=== PATIENT | male | born 1940 | race Asian ===

== ENCOUNTER → 2018-01-14 | Outpatient (CLI) | payer OTHER ==
[~2018-01-14] MED LIST: ALLO100T22 PO; ALLO300T23 PO; AMIODARONE HYD200 MG PO; AMITRIPTYLINE H50 MG PO; ASPIR-8181 MG PO; BRILINTA90 MG PO; CARV25TA PO; COLCRYS 0.6MG0.6 MG PO; CORLANOR5 MG PO; COZAAR100 MG PO; DILTIAZEM HCL240 M2 PO; DOCU SOFT100 MG PO; DONE5TAB PO; FAMOTIDINE20 MG PO; FERROUS SULF325 M1 PO; FURO20TA67 PO; GLIP10TA55 PO; HUMALOG KW100 UNIT/M SC; HYDRALAZINE25 MG PO; LANTUS100 UNIT/M SC; LIPITOR40 MG PO; MECLIZINE12.5 MG PO; NEURONTIN 100M100 MG PO; OMEPRAZOLE40 MG PO; RANI150T78 PO; RENA-VITE PO; SODIUM BICAR650 MG PO; TAMS0.4C PO; TRAMADOL HYDROC50 MG PO; VITAMIN D50000 UNIT PO; [UNRECOGNIZED DRUG - OTHER] PO
== END | disposition short-term general hospital (02) ==
LOC: AMB 08:10
DX: E16.1 Other hypoglycemia (principal)
CPT/HCPCS: A0425; A0427

== ENCOUNTER 2018-03-31 21:50 | Emergency (ER) | payer OTHER ==
[~2018-03-31] VITALS: Ht 165.1 cm; Wt 85.3 kg
[2018-03-31 22:16] LABS: PLATELET COUNT 318 K/uL (142-355)
[2018-03-31 22:40] LABS: POTASSIUM 5.2 mmol/L (3.6-5.2)
[2018-04-01 00:02] VITALS: BP 172/100
== END 2018-04-01 00:08 | disposition short-term general hospital (02) ==
LOC: ED 21:50
DX: I21.9 Acute myocardial infarction, unspecified (principal); N19 Unspecified kidney failure; E87.5 Hyperkalemia; E11.9 Type 2 diabetes mellitus without complications; J18.9 Pneumonia, unspecified organism; R00.0 Tachycardia, unspecified
CPT/HCPCS: 36415; 80053; 81000; 82550; 82553; 84484; 85027; 93005; 99285

== ENCOUNTER 2018-04-04 00:18 | Outpatient (CLI) | payer OTHER | END 2018-04-04 01:29 | disposition short-term general hospital (02) | LOC: AMB 00:18 | DX: R07.89 Other chest pain (principal) | CPT/HCPCS: A0425; A0427 ==

== ENCOUNTER 2018-04-11 23:43 | Emergency (ER) | payer OTHER ==
[~2018-04-11] VITALS: Ht 165.1 cm; Wt 85.3 kg
[2018-04-11 23:46] VITALS: TEMP 97.5
[2018-04-12 00:10] LABS: PLATELET COUNT 383 K/uL (142-355)
[2018-04-12 00:39] LABS: POTASSIUM 5.9 mmol/L (3.6-5.2); SODIUM 143 mmol/L (136-145)
[2018-04-12 01:20] VITALS: BP 148/89
== END 2018-04-12 01:20 | disposition home or self-care (01) ==
LOC: ED 23:43
DX: K29.60 Other gastritis without bleeding (principal); N18.9 Chronic kidney disease, unspecified
CPT/HCPCS: 36415; 80053; 81000; 82550; 82553; 84484; 85027; 86318; 93005; 99284

== ENCOUNTER 2018-04-17 01:06 | Emergency (ER) | payer OTHER ==
[~2018-04-17] VITALS: Ht 165.1 cm; Wt 85.3 kg
[2018-04-17 01:08] VITALS: BP 164/107; TEMP 97.9
[2018-04-17 01:51] LABS: PLATELET COUNT 334 K/uL (142-355)
[2018-04-17 02:16] LABS: POTASSIUM 5.9 mmol/L (3.6-5.2)
== END 2018-04-17 03:30 | disposition home or self-care (01) ==
LOC: ED 01:06
PROVIDERS: Family Medicine
DX: R07.89 Other chest pain (principal); D63.1 Anemia in chronic kidney disease; N18.5 Chronic kidney disease, stage 5; E87.5 Hyperkalemia; R00.0 Tachycardia, unspecified; R06.02 Shortness of breath
CPT/HCPCS: 36415; 80053; 82550; 82553; 83880; 84443; 84484; 85027; 85379; 93005; 99283

== ENCOUNTER 2018-04-20 07:28 | Outpatient (CLI) | payer OTHER ==
[2018-04-20] MEDS ORDERED: TAMS0.4C PO (07:39)
[2018-04-20] MEDS ORDERED: OMEPRAZOLE40 MG PO (07:40)
[2018-04-20] MEDS ORDERED: NEURONTIN 100M100 MG PO (07:41)
[2018-04-20] MEDS ORDERED: RANI150T78 PO (07:41)
[2018-04-20] MEDS ORDERED: LIPITOR40 MG PO (07:42)
[2018-04-20] MEDS ORDERED: FURO20TA67 PO (07:42)
[2018-04-20] MEDS ORDERED: DONE5TAB PO (07:43)
[2018-04-20] MEDS ORDERED: AMITRIPTYLINE H50 MG PO (07:44)
[2018-04-20] MEDS ORDERED: ALLO300T23 PO (07:44)
[2018-04-20] MEDS ORDERED: COZAAR100 MG PO ×2 (07:45→07:46)
[2018-04-20] MEDS ORDERED: COLCRYS 0.6MG0.6 MG PO (07:45)
[2018-04-20] MEDS ORDERED: [UNRECOGNIZED DRUG - OTHER] PO (07:46)
[2018-04-20] MEDS ORDERED: GLIP10TA55 PO (07:47)
[2018-04-20] MEDS ORDERED: ASPIR-8181 MG PO (07:49)
== END 2018-04-20 07:31 | disposition short-term general hospital (02) ==
LOC: AMB 07:28
DX: R06.02 Shortness of breath (principal); R07.89 Other chest pain
CPT/HCPCS: A0425; A0427

== ENCOUNTER 2018-04-20 07:29 | Emergency (ER) | payer OTHER ==
[~2018-04-20] VITALS: Ht 165.1 cm; Wt 85.3 kg
[2018-04-20 07:39] VITALS: TEMP 97.9
[2018-04-20] MEDS ORDERED: TAMS0.4C PO (07:39)
[2018-04-20] MEDS ORDERED: OMEPRAZOLE40 MG PO (07:40)
[2018-04-20] MEDS ORDERED: RANI150T78 PO (07:41)
[2018-04-20] MEDS ORDERED: NEURONTIN 100M100 MG PO (07:41)
[2018-04-20] MEDS ORDERED: LIPITOR40 MG PO (07:42)
[2018-04-20] MEDS ORDERED: FURO20TA67 PO (07:42)
[2018-04-20] MEDS ORDERED: DONE5TAB PO (07:43)
[2018-04-20] MEDS ORDERED: ALLO300T23 PO (07:44)
[2018-04-20] MEDS ORDERED: AMITRIPTYLINE H50 MG PO (07:44)
[2018-04-20] MEDS ORDERED: COLCRYS 0.6MG0.6 MG PO (07:45)
[2018-04-20] MEDS ORDERED: COZAAR100 MG PO ×2 (07:45→07:46)
[2018-04-20] MEDS ORDERED: [UNRECOGNIZED DRUG - OTHER] PO (07:46)
[2018-04-20] MEDS ORDERED: GLIP10TA55 PO (07:47)
[2018-04-20] MEDS ORDERED: ASPIR-8181 MG PO (07:49)
[2018-04-20 07:59] LABS: PLATELET COUNT 302 K/uL (142-355)
[2018-04-20 09:57] VITALS: BP 95/56
[2018-04-20 12:42] LABS: POTASSIUM 5.9 mmol/L (3.6-5.2)
== END 2018-04-20 10:15 | disposition short-term general hospital (02) ==
LOC: ED 07:29
PROVIDERS: Emergency Medicine; Internal Medicine
DX: I21.3 ST elevation (STEMI) myocardial infarction of unspecified site (principal)
CPT/HCPCS: 80053; 82550; 82553; 83880; 84484; 85027; 85379; 93005; 94664; 96365; 96374; 99285; J3490

== ENCOUNTER 2018-04-20 10:24 | Outpatient (CLI) | payer OTHER ==
[~2018-04-20 10:24] MED LIST changes: -ALLO100T22 PO; -AMIODARONE HYD200 MG PO; -BRILINTA90 MG PO; -CARV25TA PO; -CORLANOR5 MG PO; -DILTIAZEM HCL240 M2 PO; -DOCU SOFT100 MG PO; -FAMOTIDINE20 MG PO; -FERROUS SULF325 M1 PO; -HUMALOG KW100 UNIT/M SC; -HYDRALAZINE25 MG PO; -LANTUS100 UNIT/M SC; -MECLIZINE12.5 MG PO; -RENA-VITE PO; -SODIUM BICAR650 MG PO; -TRAMADOL HYDROC50 MG PO; -VITAMIN D50000 UNIT PO
== END 2018-04-20 11:32 | disposition short-term general hospital (02) ==
LOC: AMB 10:24
DX: I21.3 ST elevation (STEMI) myocardial infarction of unspecified site (principal)
CPT/HCPCS: A0425; A0427

== ENCOUNTER 2018-05-06 20:26 | Emergency (ER) | payer OTHER ==
[~2018-05-06] VITALS: Ht 165.1 cm; Wt 74.8 kg
[2018-05-06 20:34] VITALS: BP 106/61; TEMP 98.2
== END 2018-05-06 21:08 | disposition home or self-care (01) ==
LOC: ED 20:26
DX: K64.8 Other hemorrhoids (principal); K62.5 Hemorrhage of anus and rectum
CPT/HCPCS: 82272; 99284

== ENCOUNTER 2018-05-23 08:25 | Emergency (ER) | payer OTHER ==
[~2018-05-23] VITALS: Ht 165.1 cm; Wt 74.8 kg
[2018-05-23 09:13] LABS: PLATELET COUNT 393 K/uL (142-355)
[2018-05-23 09:29] LABS: POTASSIUM 4.3 mmol/L (3.6-5.2); SODIUM 141 mmol/L (136-145)
[2018-05-23 14:07] VITALS: BP 122/65; TEMP 97.8
== END 2018-05-23 14:12 | disposition short-term general hospital (02) ==
LOC: ED 08:25
PROVIDERS: Internal Medicine
DX: D64.89 Other specified anemias (principal); K92.2 Gastrointestinal hemorrhage, unspecified; D72.828 Other elevated white blood cell count; R53.1 Weakness; J84.10 Pulmonary fibrosis, unspecified
CPT/HCPCS: 36415; 80053; 82550; 84484; 85027; 93005; 99283

== ENCOUNTER 2018-06-22 04:32 | Emergency (ER) | payer OTHER ==
[~2018-06-22] VITALS: Ht 165.1 cm; Wt 74.8 kg
[2018-06-22 04:46] VITALS: BP 161/96; TEMP 97.7
[2018-06-22 06:20] LABS: PLATELET COUNT 271 K/uL (142-355)
[2018-06-22 06:24] LABS: POTASSIUM 4.7 mmol/L (3.6-5.2)
[2018-06-22] MEDS ORDERED: AMIODARONE HYD200 MG PO (07:16)
[2018-06-22] MEDS ORDERED: ALLO100T22 PO (07:16)
[2018-06-22] MEDS ORDERED: BRILINTA90 MG PO (07:16)
[2018-06-22] MEDS ORDERED: CORLANOR5 MG PO (07:17)
[2018-06-22] MEDS ORDERED: CARV25TA PO (07:17)
[2018-06-22] MEDS ORDERED: DILTIAZEM HCL240 M2 PO (07:18)
[2018-06-22] MEDS ORDERED: DOCU SOFT100 MG PO (07:19)
[2018-06-22] MEDS ORDERED: FERROUS SULF325 M1 PO (07:20)
[2018-06-22] MEDS ORDERED: FAMOTIDINE20 MG PO (07:20)
[2018-06-22] MEDS ORDERED: HYDRALAZINE25 MG PO (07:20)
[2018-06-22] MEDS ORDERED: RENA-VITE PO (07:21)
[2018-06-22] MEDS ORDERED: MECLIZINE12.5 MG PO (07:21)
[2018-06-22] MEDS ORDERED: TRAMADOL HYDROC50 MG PO (07:22)
[2018-06-22] MEDS ORDERED: SODIUM BICAR650 MG PO (07:22)
[2018-06-22] MEDS ORDERED: HUMALOG KW100 UNIT/M SC (07:23)
[2018-06-22] MEDS ORDERED: VITAMIN D50000 UNIT PO (07:23)
[2018-06-22] MEDS ORDERED: LANTUS100 UNIT/M SC ×2 (07:24)
== END 2018-06-22 08:18 | disposition short-term general hospital (02) ==
LOC: ED 04:32
PROVIDERS: Internal Medicine
DX: J18.9 Pneumonia, unspecified organism (principal); N18.6 End stage renal disease; Z99.2 Dependence on renal dialysis; D72.828 Other elevated white blood cell count; R06.02 Shortness of breath
CPT/HCPCS: 36415; 80053; 85027; 93005; 96365; 96366; 99284; J0456; J0696

== ENCOUNTER 2018-06-22 08:24 | Outpatient (CLI) | payer OTHER ==
[~2018-06-22 08:24] MED LIST changes: +ALLO100T22 PO; +AMIODARONE HYD200 MG PO; +BRILINTA90 MG PO; +CARV25TA PO; +CORLANOR5 MG PO; +DILTIAZEM HCL240 M2 PO; +DOCU SOFT100 MG PO; +FAMOTIDINE20 MG PO; +FERROUS SULF325 M1 PO; +HUMALOG KW100 UNIT/M SC; +HYDRALAZINE25 MG PO; +LANTUS100 UNIT/M SC; +MECLIZINE12.5 MG PO; +RENA-VITE PO; +SODIUM BICAR650 MG PO; +TRAMADOL HYDROC50 MG PO; +VITAMIN D50000 UNIT PO
== END 2018-06-22 09:32 | disposition short-term general hospital (02) ==
LOC: AMB 08:24
DX: J18.9 Pneumonia, unspecified organism (principal); N18.6 End stage renal disease; Z99.2 Dependence on renal dialysis; D72.828 Other elevated white blood cell count; R06.02 Shortness of breath
CPT/HCPCS: A0425; A0427

== ENCOUNTER 2018-07-01 14:01 | Outpatient (CLI) | payer OTHER | END 2018-07-01 14:04 | disposition short-term general hospital (02) | LOC: AMB 14:01 | DX: D64.89 Other specified anemias (principal); R26.2 Difficulty in walking, not elsewhere classified | CPT/HCPCS: A0425; A0429 ==

== ENCOUNTER 2018-07-01 14:10 | Emergency (ER) | payer OTHER ==
[~2018-07-01] VITALS: Ht 165.1 cm; Wt 74.8 kg
[2018-07-01 14:10] VITALS: TEMP 98
[2018-07-01 14:51] LABS: PLATELET COUNT 505 K/uL (142-355)
[2018-07-01 15:11] LABS: POTASSIUM 4.7 mmol/L (3.6-5.2); SODIUM 139 mmol/L (136-145)
[2018-07-01 16:52] VITALS: BP 94/56
== END 2018-07-01 16:52 | disposition home or self-care (01) ==
LOC: ED 14:10
DX: N18.9 Chronic kidney disease, unspecified (principal); K64.8 Other hemorrhoids
CPT/HCPCS: 36415; 80053; 82272; 82550; 82553; 84484; 85027; 93005; 99283; J0696

== ENCOUNTER 2018-07-05 14:30 | Emergency (ER) | payer OTHER ==
[~2018-07-05] VITALS: Ht 165.1 cm; Wt 74.8 kg
[2018-07-05 19:43] LABS: PLATELET COUNT 372 K/uL (142-355)
[2018-07-05 19:47] LABS: POTASSIUM 3.2 mmol/L (3.6-5.2)
[2018-07-05 21:47] VITALS: BP 110/66; TEMP 98.6
== END 2018-07-05 21:50 | disposition short-term general hospital (02) ==
LOC: ED 14:30
PROVIDERS: Family Medicine
DX: R41.82 Altered mental status, unspecified (principal); N18.6 End stage renal disease; Z99.2 Dependence on renal dialysis; R31.9 Hematuria, unspecified
CPT/HCPCS: 36415; 80053; 85027; 99283

== ENCOUNTER 2018-07-16 15:41 | Outpatient (CLI) | payer OTHER | END 2018-07-16 19:29 | disposition home or self-care (01) | LOC: LAB 15:41 | DX: D64.9 Anemia, unspecified (principal) | CPT/HCPCS: 85018 ==

== ENCOUNTER 2018-07-30 14:10 | Outpatient (CLI) | payer OTHER | END 2018-07-30 21:08 | disposition home or self-care (01) | LOC: LAB 14:10 | DX: D64.9 Anemia, unspecified (principal) | CPT/HCPCS: 85018 ==

== ENCOUNTER 2018-08-25 12:28 | Outpatient (CLI) | payer OTHER | END 2018-08-25 19:57 | disposition home or self-care (01) | LOC: LAB 12:28 | DX: D63.1 Anemia in chronic kidney disease (principal) | CPT/HCPCS: 85014; 85018 ==

== ENCOUNTER 2018-09-09 14:36 | Outpatient (CLI) | payer OTHER | END 2018-09-09 19:57 | disposition home or self-care (01) | LOC: LAB 14:36 | DX: D64.9 Anemia, unspecified (principal) | CPT/HCPCS: 85014; 85018 ==

== ENCOUNTER 2018-09-21 17:54 | Outpatient (CLI) | payer OTHER | END 2018-09-21 20:10 | disposition home or self-care (01) | LOC: RAD 17:54 | DX: M94.0 Chondrocostal junction syndrome [Tietze] (principal) ==

== ENCOUNTER 2018-09-29 08:23 | Outpatient (CLI) | payer OTHER ==
[~2018-09-29] VITALS: Ht 165.1 cm; Wt 76.7 kg
[2018-09-29 08:30] VITALS: BP 100/58; TEMP 97.9
== END 2018-09-29 21:40 | disposition home or self-care (01) ==
LOC: INF 08:23
PROC: 30233N1 Transfusion of Nonautologous Red Blood Cells into Peripheral Vein, Percutaneous Approach (ICD-10-PCS; principal; 2018-09-29)
DX: D64.89 Other specified anemias (principal); N18.9 Chronic kidney disease, unspecified
CPT/HCPCS: 36430; 36591; 86850; 86900; 86901; 86922; P9016

== ENCOUNTER 2018-09-30 14:17 | Outpatient (CLI) | payer OTHER | END 2018-09-30 19:45 | disposition home or self-care (01) | LOC: LAB 14:17 | DX: D64.89 Other specified anemias (principal) | CPT/HCPCS: 85014; 85018 ==

== ENCOUNTER 2018-10-11 19:53 | Observation (INO) | payer OTHER ==
[~2018-10-11] VITALS: Ht 165.1 cm; Wt 71.9 kg
[2018-10-11 20:25] VITALS: BP 86/52; TEMP 98.7
[2018-10-11 20:28] VITALS: BP 107/61
[2018-10-11 20:47] LABS: PLATELET COUNT 333 K/uL (142-355)
[2018-10-11 21:00] VITALS: BP 107/57
[2018-10-11 21:30] VITALS: BP 123/71; TEMP 98.7
[2018-10-11 21:33] LABS: POTASSIUM 6.2 mmol/L (3.6-5.2)
[2018-10-11 22:00] VITALS: BP 120/67
[2018-10-11] MEDS ORDERED: CARV3.12 PO ×2 (23:21)
[2018-10-11] MEDS ORDERED: OMEP40CA PO ×2 (23:24)
[2018-10-11] MEDS ORDERED: COZAAR25 MG PO ×2 (23:24)
[2018-10-12 00:02] VITALS: BP 126/73; TEMP 97.6; Ht 165.1 cm; Wt 71.9 kg
[2018-10-12 03:28] LABS: PLATELET COUNT 278 K/uL (142-355)
[2018-10-12 03:57] VITALS: BP 129/71; TEMP 97.8
[2018-10-12 08:00] VITALS: BP 129/69; TEMP 97.3
[2018-10-12 08:22] LABS: POTASSIUM 5.3 mmol/L (3.6-5.2)
== END 2018-10-12 09:35 | disposition home or self-care (01) ==
LOC: ED 19:53 → MED/SURG 22:00
PROVIDERS: ADMIT Internal Medicine
PROC: 30233N1 Transfusion of Nonautologous Red Blood Cells into Peripheral Vein, Percutaneous Approach (ICD-10-PCS; principal; 2018-10-11)
PROC: 30233N1 Transfusion of Nonautologous Red Blood Cells into Peripheral Vein, Percutaneous Approach (ICD-10-PCS; 2018-10-12)
DX: K92.2 Gastrointestinal hemorrhage, unspecified (principal); E11.22 Type 2 diabetes mellitus with diabetic chronic kidney disease; I13.2 Hypertensive heart and chronic kidney disease with heart failure and with stage 5 chronic kidney disease, or end stage renal disease; N18.6 End stage renal disease; Z99.2 Dependence on renal dialysis; E87.5 Hyperkalemia; D64.89 Other specified anemias
CPT/HCPCS: 36415; 36430; 36591; 80048; 80053; 83735; 85027; 86850; 86900; 86901; 86922; 93005; 96365; 99220; 99284; G0378; J0610; J3490; P9016

== ENCOUNTER 2018-10-12 15:06 | Outpatient (CLI) | payer OTHER ==
[~2018-10-12 15:06] MED LIST changes: +CARV3.12 PO; +COZAAR25 MG PO; +OMEP40CA PO
== END 2018-10-12 20:17 | disposition home or self-care (01) ==
LOC: LAB 15:06
DX: D64.89 Other specified anemias (principal)
CPT/HCPCS: 85018

== ENCOUNTER 2018-10-26 14:01 | Outpatient (CLI) | payer OTHER | END 2018-10-26 22:31 | disposition home or self-care (01) | LOC: LAB 14:01 | DX: D64.89 Other specified anemias (principal) | CPT/HCPCS: 85014; 85018 ==

== ENCOUNTER 2018-10-29 18:14 | Emergency (ER) | payer OTHER ==
[~2018-10-29] VITALS: Ht 165.1 cm; Wt 71.7 kg
[2018-10-29 19:26] LABS: PLATELET COUNT 287 K/uL (142-355)
[2018-10-29 19:41] LABS: POTASSIUM 4.5 mmol/L (3.6-5.2)
[2018-10-29 19:44] LABS: PARTIAL THROMBOPLASTIN TIME 26.3 SECONDS (24.5-33.6)
[2018-10-29 20:42] VITALS: BP 102/69; TEMP 98.1
== END 2018-10-29 20:43 | disposition home or self-care (01) ==
LOC: ED 18:14
PROVIDERS: Emergency Medicine
DX: K92.2 Gastrointestinal hemorrhage, unspecified (principal)
CPT/HCPCS: 36415; 80053; 82272; 85027; 85610; 85730; 99283

== ENCOUNTER 2018-11-10 09:56 | Outpatient (CLI) | payer OTHER ==
[~2018-11-10] VITALS: Ht 165.1 cm; Wt 73.0 kg
[2018-11-10 10:05] VITALS: BP 89/52; TEMP 98.1
== END 2018-11-10 18:15 | disposition home or self-care (01) ==
LOC: INF 09:56
PROC: 30233N1 Transfusion of Nonautologous Red Blood Cells into Peripheral Vein, Percutaneous Approach (ICD-10-PCS; principal; 2018-11-10)
DX: D64.9 Anemia, unspecified (principal)
CPT/HCPCS: 36430; 36591; 85014; 85018; 86850; 86900; 86901; 86922; P9016

== ENCOUNTER 2018-11-11 13:18 | Outpatient (CLI) | payer OTHER | END 2018-11-11 23:20 | disposition home or self-care (01) | LOC: LAB 13:18 | DX: D64.89 Other specified anemias (principal) | CPT/HCPCS: 85018 ==

== ENCOUNTER 2018-11-25 13:42 | Outpatient (CLI) | payer OTHER | END 2018-11-26 07:00 | disposition home or self-care (01) | LOC: LAB 13:42 → INF 13:42 | DX: D64.89 Other specified anemias (principal) | CPT/HCPCS: 36415; 36430; 85014; 85018; 86850; 86900; 86901; 86922; P9016 ==

== ENCOUNTER 2018-11-28 17:00 | Outpatient (CLI) | payer OTHER | END 2018-11-28 19:22 | disposition home or self-care (01) | LOC: LAB 17:00 | DX: N18.6 End stage renal disease (principal) | CPT/HCPCS: 36415; 85014; 85018 ==

== ENCOUNTER 2019-01-20 14:22 | Outpatient (CLI) | payer OTHER | END 2019-01-20 21:48 | disposition home or self-care (01) | LOC: LAB 14:22 | DX: D64.89 Other specified anemias (principal) | CPT/HCPCS: 85014; 85018 ==

== ENCOUNTER 2019-02-01 15:02 | Outpatient (CLI) | payer OTHER | END 2019-02-01 19:55 | disposition home or self-care (01) | LOC: LAB 15:02 | DX: D64.89 Other specified anemias (principal) | CPT/HCPCS: 85018 ==

== ENCOUNTER 2019-02-15 14:44 | Outpatient (CLI) | payer OTHER | END 2019-02-15 19:48 | disposition home or self-care (01) | LOC: LAB 14:44 | DX: D64.89 Other specified anemias (principal) | CPT/HCPCS: 85014; 85018 ==

== ENCOUNTER 2019-02-21 04:37 | Outpatient (CLI) | payer OTHER | END 2019-02-21 22:47 | disposition home or self-care (01) | LOC: LAB 04:37 | DX: D64.89 Other specified anemias (principal) | CPT/HCPCS: 85014; 85018 ==

== ENCOUNTER 2019-04-11 20:37 | Outpatient (CLI) | payer OTHER | END 2019-04-11 20:40 | disposition short-term general hospital (02) | LOC: AMB 20:37 | DX: M79.671 Pain in right foot (principal); M25.572 Pain in left ankle and joints of left foot; R22.41 Localized swelling, mass and lump, right lower limb; W19.XXXA Unspecified fall, initial encounter | CPT/HCPCS: A0425; A0429 ==

== ENCOUNTER 2019-04-11 20:46 | Emergency (ER) | payer OTHER ==
[~2019-04-11] VITALS: Ht 165.1 cm; Wt 76.2 kg
[2019-04-11 22:19] VITALS: BP 178/90; TEMP 97.9
== END 2019-04-11 22:20 | disposition home or self-care (01) ==
LOC: ED 20:46
DX: S93.492A Sprain of other ligament of left ankle, initial encounter (principal); S93.691A Other sprain of right foot, initial encounter; W18.39XA Other fall on same level, initial encounter; Y92.89 Other specified places as the place of occurrence of the external cause
CPT/HCPCS: 99283

== ENCOUNTER 2019-06-26 13:15 | Outpatient (CLI) | payer OTHER | END 2019-06-26 13:16 | disposition short-term general hospital (02) | LOC: AMB 13:15 | DX: R07.89 Other chest pain (principal) | CPT/HCPCS: A0425; A0427 ==

== ENCOUNTER 2019-06-26 13:21 | Emergency (ER) | payer OTHER ==
[~2019-06-26] VITALS: Ht 165.1 cm; Wt 72.6 kg
[2019-06-26 14:04] LABS: PLATELET COUNT 243 K/uL (142-355)
[2019-06-26 14:15] LABS: POTASSIUM 4.3 mmol/L (3.6-5.2); SODIUM 137 mmol/L (136-145)
[2019-06-26 14:20] LABS: PARTIAL THROMBOPLASTIN TIME 27.2 SECONDS (24.5-33.6)
[2019-06-26 15:05] VITALS: BP 106/65; TEMP 98
== END 2019-06-26 15:05 | disposition home or self-care (01) ==
LOC: ED 13:21
PROVIDERS: Student in an Organized Health Care Education/Training Program
DX: R07.89 Other chest pain (principal)
CPT/HCPCS: 80048; 83735; 84484; 85027; 85610; 85730; 86850; 86900; 86901; 93005; 99283

== ENCOUNTER 2019-08-10 11:28 | Outpatient (CLI) | payer OTHER | END 2019-08-10 19:12 | disposition home or self-care (01) | LOC: RAD 11:28 | DX: M54.5 Low back pain (principal) ==

== ENCOUNTER 2020-01-26 07:44 | Emergency (ER) | payer OTHER ==
[~2020-01-26] VITALS: Ht 165.1 cm; Wt 72.6 kg
[2020-01-26 08:56] LABS: PLATELET COUNT 219 K/uL (142-355)
[2020-01-26 08:58] LABS: POTASSIUM 4.9 mmol/L (3.6-5.2); SODIUM 136 mmol/L (136-145)
[2020-01-26 09:01] LABS: PARTIAL THROMBOPLASTIN TIME 22.3 SECONDS (24.5-33.6)
[2020-01-26 14:55] VITALS: TEMP 98.8
[2020-01-26 14:56] VITALS: BP 127/69
== END 2020-01-26 15:00 | disposition home or self-care (01) ==
LOC: ED 07:44
PROVIDERS: Hospitalist
PROC: 0XH833Z Insertion of Infusion Device into Right Upper Arm, Percutaneous Approach (ICD-10-PCS; principal; 2020-01-26)
DX: E86.0 Dehydration (principal); N18.6 End stage renal disease; Z99.2 Dependence on renal dialysis
CPT/HCPCS: 80053; 82550; 83605; 83880; 84484; 85027; 85610; 85730; 87040; 93005; 96361; 96365; 99284; J2001; P9047

== ENCOUNTER 2020-02-06 09:56 | Outpatient (CLI) | payer OTHER | END 2020-02-06 19:40 | disposition home or self-care (01) | LOC: RAD 09:56 | DX: R05 Cough (principal) ==

== ENCOUNTER 2020-02-27 08:48 | Emergency (ER) | payer OTHER ==
[~2020-02-27] VITALS: Ht 165.1 cm; Wt 72.6 kg
[2020-02-27 08:51] VITALS: TEMP 98
[2020-02-27 09:45] LABS: POTASSIUM 4.4 mmol/L (3.6-5.2)
[2020-02-27 09:48] LABS: PARTIAL THROMBOPLASTIN TIME 25.6 SECONDS (24.5-33.6); PLATELET COUNT 362 K/uL (142-355)
[2020-02-27 12:25] VITALS: BP 114/48
== END 2020-02-27 12:45 | disposition short-term general hospital (02) ==
LOC: ED 08:48
PROVIDERS: Family Medicine
DX: K92.2 Gastrointestinal hemorrhage, unspecified (principal); N18.6 End stage renal disease
CPT/HCPCS: 80053; 82272; 85027; 85610; 85730; 96360; 96361; 99284

== ENCOUNTER 2020-03-14 23:11 | Emergency (ER) | payer OTHER ==
[~2020-03-14] VITALS: Ht 165.1 cm; Wt 76.2 kg
[2020-03-14 23:20] VITALS: TEMP 98.9
[2020-03-14 23:52] LABS: PLATELET COUNT 221 K/uL (142-355)
[2020-03-15 00:09] LABS: POTASSIUM 3.8 mmol/L (3.6-5.2); SODIUM 137 mmol/L (136-145)
[2020-03-15 00:10] LABS: PARTIAL THROMBOPLASTIN TIME 30.7 SECONDS (24.5-33.6)
[2020-03-15 07:35] VITALS: BP 128/66
== END 2020-03-15 08:25 | disposition short-term general hospital (02) ==
LOC: ED 23:11
PROVIDERS: Hospitalist
DX: N18.6 End stage renal disease (principal); Z99.2 Dependence on renal dialysis; J18.9 Pneumonia, unspecified organism; I50.9 Heart failure, unspecified
CPT/HCPCS: 36600; 80053; 82550; 82805; 83880; 84484; 85027; 85610; 85730; 87040; 93005; 96365; 96366; 96374; 96375; 99284; J1885; J1956; J3370